=== PATIENT | male | born 1975 ===

== ENCOUNTER → 2019-03-19 | Outpatient (CLI) | payer MEDICAID | LOC: COL.RAD 13:54 | DX: R76.11 Nonspecific reaction to tuberculin skin test without active tuberculosis (principal) ==

== ENCOUNTER → 2019-11-19 | Outpatient (CLI) | payer MEDICAID | LOC: COL.CARD 07:28 | DX: I10 Essential (primary) hypertension (principal); I27.20 Pulmonary hypertension, unspecified; I35.1 Nonrheumatic aortic (valve) insufficiency ==